=== PATIENT | male | born 1940 | race Caucasian/White ===

== ENCOUNTER 2018-02-11 09:37 | Observation (INO) ==
--- NOTE | 2018-02-11 10:30 | ED ---
HPI General Chief Complaint: Chest Pain Stated Complaint: chest pain Time Seen by Provider: 02/11/18 09:48 Source: patient Mode of arrival: ambulatory Limitations: no limitations History of Present Illness HPI narrative: The patient is a 77-year-old male who presents to the emergency department via private vehicle for chest pain. The patient developed left-sided chest pain several days ago while driving from [place] to [place] to visit relatives and friends. The chest pain was left-sided, nonradiating, sharp, and lasted only seconds. He did have one episode of shortness of breath with the chest pain, however, does not have shortness of breath with every episode of chest pain. He denies any nausea, vomiting, or diaphoresis. The patient does have a history of peripheral vascular disease, hypertension, hyperlipidemia, and tobacco use but quit smoking in 1986. He denies any history of coronary artery disease. The patient states he had a chemical stress test 3 months ago in [place] which was negative per his report. Symptoms are moderate, intermittent, and not exacerbated with exertion. MD complaint: chest pain Complete Quality Measures for STEMI Alert Patients STEMI Alert: No Onset (ago): day(s) Duration: intermittent Onset: during rest Pain location: left chest Severity: moderate Severity scale (1-10): 5 Quality: sharp Pain radiation: none Relieving factors: nothing Exacerbating factors: nothing Associated symptoms: dyspnea Treatments prior to arrival chest pain: none Related Data Home Medications Medication Instructions Recorded Confirmed Lopid 600 mg DAILY 02/11/18 02/11/18 Plavix 75 mg DAILY 02/11/18 02/11/18 aspirin [Aspirin Low Dose] 81 mg PO DAILY 02/11/18 02/11/18 atorvastatin [Lipitor] 20 mg PO DAILY 02/11/18 02/11/18 Allergies Allergy/AdvReac Type Severity Reaction Status Date / Time No Known Allergies Allergy Unverified 02/11/18 09:44 Review of Systems ROS: all other systems reviewed are negative [facility] Medical History Medical History Coronary arteriosclerosis after coronary artery bypass grafting (Acute) High cholesterol (Acute) Social History Social History Substance History: No History of Abuse Smoking Status: Former smoker Tobacco Type: Cigarettes How Often Do You Have a Drink Containing Alcohol: Monthly or less Recent Travel in [facility] within the Last 8 Weeks: No Recent Out of Country Travel within the Last 8 Weeks: No Exam Narrative Exam Narrative: GENERAL: Awake, alert, pleasant 77-year-old male who appears his stated age and is in no acute respiratory distress. SKIN: Focused skin assessment warm/dry. HEAD: Atraumatic. Normocephalic. EYES: Pupils equal and round. No scleral icterus. No injection or drainage. ENT: No nasal bleeding or discharge. Mucous membranes pink and moist. NECK: Trachea midline. No JVD. CARDIOVASCULAR: Regular rate and rhythm. No murmur appreciated. Palpation the left chest wall does not reproduce symptoms. RESPIRATORY: No accessory muscle use. Clear to auscultation. Breath sounds equal bilaterally. GASTROINTESTINAL: Abdomen soft, non-tender, nondistended. MUSCULOSKELETAL: No obvious deformities. No clubbing. No cyanosis. No edema. Well-healed scar in the medial aspect of the left lower extremity. NEUROLOGICAL: Awake and alert. No obvious cranial nerve deficits. Motor grossly within normal limits. Normal speech. Nonfocal. Oriented 4. PSYCHIATRIC: Appropriate mood and affect; insight and judgment normal. Course Initial Documented Vital Signs Temperature 97.8 F 02/11/18 09:39 Pulse Rate 78 02/11/18 09:39 Respiratory Rate 20 02/11/18 09:39 Blood Pressure 178/109 H 02/11/18 09:39 Pulse Oximetry 97 02/11/18 09:39 Last Documented Vital Signs Temperature 97.8 F 02/11/18 09:39 Pulse Rate 61 02/11/18 14:08 Respiratory Rate 18 02/11/18 14:08 Blood Pressure 163/82 H 02/11/18 14:08 Pulse Oximetry 97 02/11/18 11:17 Clinical Decision Support PERC Rule Age greater than or equal to 50: Yes HR greather than or equal to 100: No Sa02 on room air is less than 95%: No Unilateral Leg Swelling: No Hemoptysis: No Recent Surgery or Trauma: No Prior PE or DVT: No Hormone Use: No Medical Decision Making MDM Narrative Medical decision making narrative: IV was established, labs are drawn and sent, and the patient was placed on cardiac telemetry monitoring and continuous pulse oximetry monitoring. EKG was ordered and interpreted. Chest x-ray was obtained. The patient was administered aspirin 162 mg orally. The patient could not be ruled out with PERC secondary to age, also has recent driving history, therefore, d-dimer was sent to lab. The patient's initial troponin was less than 0.02. D-dimer was positive, therefore, CT pulmonary angiogram was ordered. The patient CTA reveals no PE, however, does reveal a focal anterior pericardial effusion. Therefore, the patient will be a 23 hour observation for serial cardiac enzymes and echocardiogram. The on-call medical service was paged for 23 hour observation. Medical Screen Exam Complete: Yes Emergency Medical Condition: Yes Differential Diagnosis Differential Diagnosis: Differential diagnosis includes ACS, pulmonary embolism , esophageal spasm, GERD, pleurisy, pneumonia, pleural effusion, pneumothorax. Lab Data Lab results reviewed: Yes I reviewed the patient's lab results. Lab results narrative: D-dimer was positive. Creatinine was 1.76. Troponin was less than 0.02. Result diagrams: 02/11/18 10:32 02/11/18 10:32 Lab Results 02/11/18 02/11/18 02/11/18 Range/Units 10:32 10:32 10:32 WBC 6.8 (4.0-11.0) th/mm3 RBC 4.07 L (4.50-5.90) mil/mm3 Hgb 12.4 L (13.0-17.0) gm/dL Hct 37.4 L (39.0-51.0) % MCV 91.8 (80.0-100.0) fL MCH 30.4 (27.0-34.0) pg MCHC 33.1 (32.0-36.0) % RDW 15.6 (11.6-17.2) % Plt Count 175 (150-450) th/mm3 MPV 8.5 (7.0-11.0) fL Neut % (Auto) 67.6 (16.0-70.0) % Lymph % (Auto) 18.3 (9.0-44.0) % Delta % (Auto) 8.3 H (0.0-8.0) % Eos % (Auto) 5.1 H (0.0-4.0) % Baso % (Auto) 0.7 (0.0-2.0) % Neut # (Auto) 4.6 (1.8-7.7) th/mm3 Lymph # (Auto) 1.2 (1.0-4.8) th/mm3 Delta # (Auto) 0.6 (0.0-0.9) th/mm3 Eos # (Auto) 0.3 (0.0-0.4) th/mm3 Baso # (Auto) 0.0 (0.0-0.2) th/mm3 WBC Differential . Differential Comment Auto diff final PT 10.3 (9.8-11.6) sec INR 1.0 Ratio APTT 21.6 L (24.3-30.1) sec D-Dimer Quant (PE/DVT) 2.32 H (0.00-0.50) mg/L FEU Sodium 142 (136-145) meq/L Potassium 5.0 (3.5-5.1) meq/L Chloride 109 H (98-107) meq/L Carbon Dioxide 26.8 (21.0-32.0) meq/L Anion Gap 6 (5-15) meq/L BUN 15 (7-18) mg/dL Creatinine 1.76 H (0.60-1.30) mg/dL Estimated GFR 38 L (>89) mL/min Random Glucose 98 (74-106) mg/dL Calcium 8.7 (8.5-10.1) mg/dL Magnesium 1.8 (1.5-2.5) mg/dL Total Bilirubin 0.6 (0.2-1.0) mg/dL AST 26 (15-37) U/L ALT 19 (12-78) U/L Alkaline Phosphatase 104 (45-117) U/L Troponin I Less than 0.02 L (0.02-0.05) ng/mL Total Protein 8.0 (6.4-8.2) g/dL Albumin 3.5 (3.4-5.0) g/dL Lipase 211 (73-393) U/L Imaging Data Attestation: I personally reviewed and interpreted this imaging study as follows : My impression: Chest x-ray is unremarkable Radiologist's impression: Chest X-Ray 02/11/18 10:20 CONCLUSION: No acute cardiopulmonary disease identified. Chest CTA 02/11/18 11:42 CONCLUSION: 1. No CT evidence for pulmonary artery embolism as questioned. 2. 7 mm subpleural nodule in the inferior right upper lobe. Recommend CT examination at 6-12 months per 2017 Fleischner criteria. 3. Moderate coronary artery calcifications. 4. Subtle focal anterior pericardial effusion. ECG Data EKG Prior to Arrival: No Attestation: I personally reviewed and interpreted this ECG as follows: Interpretation: EKG reveals atrial with, inverted P-wave in lead II. Q-wave noted in lead III. Discharge Plan Discharge Disposition Patient Disposition: 30 Still Patient Discharge Condition Condition: Stable Discharge Details Diagnosis: Atypical chest pain, Pericardial effusion Physicians Team ED Provider: Maco Hampton Primary Care Provider: NON STAFF,PROVIDER Rxs /Orders / Referrals /Forms Prescriptions: No Action Plavix 75 mg DAILY RF: 0 atorvastatin [Lipitor] 20 mg Tablet 20 mg PO DAILY RF: 0 aspirin [Aspirin Low Dose] 81 mg Tablet,Delayed Release (Dr/Ec) 81 mg PO DAILY RF: 0 Lopid 600 mg DAILY RF: 0 Discharge Instructions Patient Printed Instructions: Chest Pain (ED) Status ED Status: Pending Admission
[2018-02-11 10:53] LABS: Baso % (Auto) 0.7 % (0.0-2.0); Eos # (Auto) 0.3 th/mm3 (0.0-0.4); Eos % (Auto) 5.1 % (0.0-4.0); Hematocrit 37.4 % (39.0-51.0); Hemoglobin 12.4 gm/dL (13.0-17.0); Lymph # (Auto) 1.2 th/mm3 (1.0-4.8); Lymph % (Auto) 18.3 % (9.0-44.0); Mean Corpuscular HGB Conc 33.1 % (32.0-36.0); Mean Corpuscular Hemoglobin 30.4 pg (27.0-34.0); Mean Corpuscular Volume 91.8 fL (80.0-100.0); Mean Platelet Volume 8.5 fL (7.0-11.0); Mono # (Auto) 0.6 th/mm3 (0.0-0.9); Mono % (Auto) 8.3 % (0.0-8.0); Neut # (Auto) 4.6 th/mm3 (1.8-7.7); Neut % (Auto) 67.6 % (16.0-70.0); Platelet Count 175 th/mm3 (150-450); Red Blood Count 4.07 mil/mm3 (4.50-5.90); Red Cell Distribution Width 15.6 % (11.6-17.2); White Blood Count 6.8 th/mm3 (4.0-11.0)
--- NOTE | 2018-02-11 10:54 | XR ---
EXAM DATE: 02/11/2018 10:42 AM EDT AGE/SEX: 77 years / Male INDICATIONS: Upper, left sided chest pain and shortness of breath. CLINICAL DATA: This is the patient's initial encounter. Patient reports that signs and symptoms have been present for 2 days and indicates a pain score of 4/10. MEDICAL/SURGICAL HISTORY: None. None. COMPARISON: No prior exams available for comparison. FINDINGS: Single AP view of the chest. The lungs are clear. Cardiomediastinal silhouette within nor mal limits. No evidence of pleural effusion or pneumothorax. CONCLUSION: No acute cardiopulmonary disease identified. Electronically signed by: Stuart Block MD 02/11/2018 10:52 AM EDT
[2018-02-11 11:05] LABS: Activated Partial Thrombo Time 21.6 sec (24.3-30.1); D-Dimer 2.32 mg/L FEU (0.00-0.50); Prothrombin Time 10.3 sec (9.8-11.6)
[2018-02-11 11:15] LABS: Alanine Aminotransferase 19 U/L (12-78); Albumin 3.5 g/dL (3.4-5.0); Anion Gap 6 meq/L (5-15); Aspartate Aminotransferase 26 U/L (15-37); Blood Urea Nitrogen 15 mg/dL (7-18); Calcium 8.7 mg/dL (8.5-10.1); Carbon Dioxide 26.8 meq/L (21.0-32.0); Chloride 109 meq/L (98-107); Glomerular Filtration Rate 38 mL/min (>89); Glucose,Random 98 mg/dL (74-106); Lipase 211 U/L (73-393); Magnesium 1.8 mg/dL (1.5-2.5); Sodium 142 meq/L (136-145)
[2018-02-11 11:16] LABS: Alkaline Phosphatase 104 U/L (45-117)
--- NOTE | 2018-02-11 12:58 | CT ---
EXAM DATE: 02/11/2018 12:52 PM EDT AGE/SEX: 77 years / Male INDICATIONS: Left sided chest pain for three days. CLINICAL DATA: This is the patient's initial encounter. Patient reports that signs and symptoms have been present for 3 days and indicates a pain score of 6/10. MEDICAL/SURGICAL HISTORY: Cardiovascular disease. . unspecified arterial surgery RADIATION DOSE: 10.49 CTDI (mGy) COMPARISON: C, CHEST 1V SINGLE AP, 02/11/2018. . TECHNIQUE: Volumetric scanning was performed using a multi-row detector CT scanner during bolus infu madelaine of 50 ml Visipaque 320 (iodixanol) nonionic water-soluble contrast as a single exam dose. The d destiny was post processed with a variety of visualization algorithms including full volume maximum inten sity projection and sliding thin slab reformation. Using automated exposure control and adjustment o f the mA and/or kV according to patient size, radiation dose was kept as low as reasonably achievable to obtain optimal diagnostic quality images. DICOM format image data is available electronically fo r review and comparison. FINDINGS: Pulmonary Arteries: No filling defects are seen in the pulmonary arteries through the segmental vess els. The main pulmonary artery is normal in diameter. Lung: Right apical scarring. 7 mm nodule in the inferior right upper lobe abutting the minor fissure . Senescent changes at the lung bases. Pleura: No effusion, significant pleural thickening or pneumothorax. Mediastinum: Heart is unremarkable without pericardial effusion. Moderate coronary artery calcificat ions. Subtle focal anterior pericardial effusion. No evidence of mediastinal or hilar adenopathy. Osseous Structures: No abnormal focal lytic or blastic bony lesions. Other: Visulaized upper abdomen is unremarkable. CONCLUSION: 1. No CT evidence for pulmonary artery embolism as questioned. 2. 7 mm subpleural nodule in the inferior right upper lobe. Recommend CT examination at 6-12 months per 2017 Fleischner criteria. 3. Moderate coronary artery calcifications. 4. Subtle focal anterior pericardial effusion. Electronically signed by: Steve Winston MD 02/11/2018 12:56 PM EDT
--- NOTE | 2018-02-11 14:45 | P.HPIM ---
History of Present Illness Primary Care Physician: PROVIDER NON STAFF History of Present Illness: Mr. Hidalgo is a 77-year-old male. He is here for vacation and drove here from [place]. She reports is starting 4 days ago he has been having some intermittent chest pain. The chest pains nature slightly worsened today and he also arrived to his destination [place] so he came into the emergency department. He has a recent cardiac evaluation in [place] and had a negative exercise stress test and negative chemical stress test 3 months ago. CTA of the chest showed no evidence of pulmonary embolism. He did have some evidence of an anterior pericardial effusion which would be an atypical finding. That may represent a viral pericarditis versus congenital anomaly. Patient knows of no congenital anomalies at . He has no chest pain when seen but also describes this as a sharp pain in the left side of his chest which is only intermittent and will last a few seconds. No other complaints today. Patient' s baseline medical history includes peripheral vascular disease and carotid artery stenosis both of which are being monitored and managed as an outpatient in his home town in [place]. - Diagnosis (1) Atypical chest pain (2) Pericardial effusion Review of Systems No: unobtainable due to mental condition, unobtainable due to mental status Constitutional: Denies fatigue, Denies fever(s), Denies malaise, Denies night sweats, Denies weakness Eyes: Denies blind spots, Denies blurry vision, Denies change in vision, Denies double vision Ears, Nose, Mouth, and Throat: Denies abnormal hearing, Denies bleeding gums, Denies bad breath Cardiovascular: Reports chest pain, Reports chest pain at rest, Reports chest pain with activity, Denies shortness of breath with activity Respiratory: Denies cough, Denies shortness of breath, Denies wheezing Gastrointestinal: Denies abdominal pain, Denies black, tarry stools, Denies bloating, Denies bright, red blood in stools Musculoskeletal: Denies abnormal walking, Denies back pain, Denies body aches Skin/Breast: Denies rash, Denies skin pain, Denies skin ulcer Neurologic: Denies abnormal hearing, Denies abnormal movements, Denies abnormal speech Psychiatric: Denies abnormal sleep pattern, Denies anxiety, Denies behavioral changes [facility] - History History Provided By: Patient - Medical History Medical History: Medical History (Last Updated 08/18/18 @ 16:36 by Phong Worthington MD) Coronary arteriosclerosis after coronary artery bypass grafting High cholesterol Stenosis of peripheral vascular stent - Family History Family History: Family History (Last Updated 02/11/18 @ 16:36 by Phong Worthington MD) Mother Brain aneurysm Other Diabetes - Tobacco History Smoking Status: Former smoker Tobacco Type: Cigarettes - Alcohol History How Often Do You Have a Drink Containing Alcohol: Monthly or less - Substance Use History Substance History: No History of Abuse - Travel History Recent Travel in the [place] Within the Last 8 Weeks: No Recent Travel Out of the Country Within the Last 8 Weeks: No - Immunization History Tetanus Immunization: Unsure Hx Influenza Vaccine This Season: Yes Medications and Allergies Active Medications: Active Medications Al Hydroxide/Mg Hydroxide (Milk Of Mahendra Aguilar) 30 ml PO Q12H PRN PRN Reason: Mild Constipation Heparin Sodium (Porcine) (Heparin Inj) 5,000 units SQ Q12H OPAL Ondansetron HCl (Zofran Inj) 4 mg IV.PUSH Q6H PRN PRN Reason: NAUSEA OR VOMITING Sodium Chloride (Ns Flush) 2 ml IV.FLUSH UNSCH PRN PRN Reason: FLUSH AFTER USING IV ACCESS Allergies Allergy/AdvReac Type Severity Reaction Status Date / Time No Known Allergies Allergy Unverified 02/11/18 09:44 Home Medications Medication Instructions Recorded Confirmed Type Lopid 600 mg DAILY 02/11/18 02/11/18 History Plavix 75 mg DAILY 02/11/18 02/11/18 History aspirin [Aspirin Low Dose] 81 mg PO DAILY 02/11/18 02/11/18 History atorvastatin [Lipitor] 20 mg PO DAILY 02/11/18 02/11/18 History Exam Vital signs: Vital Signs 02/11/18 09:39 02/11/18 09:44 02/11/18 10:20 Temperature 97.8 F Pulse Rate 78 73 82 Respiratory Rate 20 22 18 Blood Pressure 178/109 H 173/74 H 173/74 H Pulse Oximetry 97 97 95 02/11/18 11:17 02/11/18 11:59 02/11/18 14:04 Temperature Pulse Rate 68 61 Respiratory Rate Blood Pressure 148/77 H 163/82 H Pulse Oximetry 97 02/11/18 14:08 Temperature Pulse Rate 61 Respiratory Rate 18 Blood Pressure 163/82 H Pulse Oximetry Intake & Output 02/10/18 02/11/1802/11/18 18:59 06:59 18:59 Weight 90.718 kg Narrative: GENERAL: NAD, A&Ox3 HEAD: Normocephalic. NECK: Supple, trachea midline. No lymphadenopathy. EYES: No scleral icterus. No injection or drainage. CARDIOVASCULAR: Regular rate and rhythm without murmurs, gallops, or rubs. RESPIRATORY: Breath sounds equal bilaterally. No accessory muscle use. GASTROINTESTINAL: Abdomen soft, non-tender, nondistended. MUSCULOSKELETAL: No cyanosis, or edema. SKIN: Warm and dry. NEURO: No focal neurological deficits. Results - Labs CBC & Chem 7: 02/11/18 10:32 02/11/18 10:32 Labs: Short CBC 02/11/18 Range/Units 10:32 WBC 6.8 (4.0-11.0) th/mm3 Hgb 12.4 L (13.0-17.0) gm/dL Hct 37.4 L (39.0-51.0) % Plt Count 175 (150-450) th/mm3 BMP 02/11/18 10:32 Sodium 142 Potassium 5.0 Chloride 109 H Carbon Dioxide 26.8 BUN 15 Creatinine 1.76 H Calcium 8.7 Cardiac Enzymes 02/11/18 Range/Units 10:32 Troponin I Less than 0.02 L (0.02-0.05) ng/mL Liver Function 02/11/18 Range/Units 10:32 Total Bilirubin 0.6 (0.2-1.0) mg/dL AST 26 (15-37) U/L ALT 19 (12-78) U/L Alkaline Phosphatase 104 (45-117) U/L Albumin 3.5 (3.4-5.0) g/dL - Imaging Impressions Chest X-Ray 02/11/18 10:20 CONCLUSION: No acute cardiopulmonary disease identified. Chest CTA 02/11/18 11:42 CONCLUSION: 1. No CT evidence for pulmonary artery embolism as questioned. 2. 7 mm subpleural nodule in the inferior right upper lobe. Recommend CT examination at 6-12 months per 2017 Fleischner criteria. 3. Moderate coronary artery calcifications. 4. Subtle focal anterior pericardial effusion. Caprini VTE Risk Assessment Caprini VTE Risk Assessment: No/Low Risk (score <= 1) Caprini Risk Assessment Model: Point Value = 1 Point Value = 2 Point Value = 3 Point Value = 5 Age 41-60 Minor surgery BMI > 25 kg/m2 Swollen legs Varicose veins or History of unexplained or recurrent spontaneous Oral contraceptives or hormone replacement Sepsis (< 1 month) Serious lung disease, including pneumonia (< 1 month) Abnormal pulmonary function Acute myocardial infarction Congestive heart failure (< 1 month) History of inflammatory bowel disease Medical patient at bed rest Age 61-74 Arthroscopic surgery Major open surgery (> 45 min) Laparoscopic surgery (> 45 min) Malignancy Confined to bed (> 72 hours) Immobilizing plaster cast Central venous access Age >= 75 History of VTE Family history of VTE Factor V Leiden Prothrombin [id number] Lupus anticoagulant Anticardiolipin antibodies Elevated serum homocysteine Heparin-induced thrombocytopenia Other congenital or acquired thrombophilia Stroke (< 1 month) Elective arthroplasty Hip, pelvis, or leg fracture Acute spinal cord injury (< 1 month) Prophylaxis Regimen: Total Risk Factor Score Risk Level Prophylaxis Regimen 0-1 Low Early ambulation 2 Moderate Order ONE of the following: *Sequential Compression Device (SCD) *Heparin 5000 units SQ BID 3-4 Higher Order ONE of the following medications: *Heparin 5000 units SQ TID *Enoxaparin/Lovenox 40 mg SQ daily (WT < 150 kg, CrCl > 30 mL/min) *Enoxaparin/Lovenox 30 mg SQ daily (WT < 150 kg, CrCl > 10-29 mL/min) *Enoxaparin/Lovenox 30 mg SQ BID (WT < 150 kg, CrCl > 30 mL/min) AND/OR *Sequential Compression Device (SCD) 5 or more Highest Order ONE of the following medications: *Heparin 5000 units SQ TID (Preferred with Epidurals) *Enoxaparin/Lovenox 40 mg SQ daily (WT < 150 kg, CrCl > 30 mL/min) *Enoxaparin/Lovenox 30 mg SQ daily (WT < 150 kg, CrCl > 10-29 mL/min) *Enoxaparin/Lovenox 30 mg SQ BID (WT < 150 kg, CrCl > 30 mL/min) AND *Sequential Compression Device (SCD) Assessment and Plan - Assessment (1) Atypical chest pain Code(s): R07.89 - Other chest pain Status: Acute (2) Pericardial effusion Code(s): I31.3 - Pericardial effusion (noninflammatory) Status: Acute - Plan 77 year old male admitted with atypical chest pain and anterior pericardial effusion Chest pain Anterior pericardial effusion Evaluate for ACS Follow cardiac enzymes Aspirin daily When necessary oxygen When necessary morphine for pain. When necessary nitroglycerin Follow on telemetry Echocardiogram PVD Carotid Artery Stenosis Continue to follow as an outpatient DVT Prophylaxis SCDs
[2018-02-11] MEDS ORDERED: Morphine Inj 4 MG/ML Vial IV.PUSH PRN ×2 (16:43)
[2018-02-11] MEDS: Heparin - SQ 10,000 UNITS/ML Vial SQ SCH (18:13)
--- NOTE | 2018-02-11 19:51 | ECG ---
Date Performed: 02/11/2018 Time Performed: 09:59:39 PTAGE: 77 years EKG: ECTOPIC ATRIAL RHYTHM WITH SOME PREMATURE ATRIAL BEATS PRESENT. ABNORMAL RHYTHM ECG NO PREVIOUS TRACING DOCTOR: Gabe White Interpretating Date/Time 02/11/2018 19:50:47
[2018-02-11 19:54] LABS: Creatine Kinase 81 U/L (39-308)
[2018-02-12 02:31] LABS: Alanine Aminotransferase 17 U/L (12-78); Albumin 3.1 g/dL (3.4-5.0); Anion Gap 8 meq/L (5-15); Aspartate Aminotransferase 16 U/L (15-37); Blood Urea Nitrogen 15 mg/dL (7-18); Calcium 8.3 mg/dL (8.5-10.1); Carbon Dioxide 27.2 meq/L (21.0-32.0); Chloride 106 meq/L (98-107); Glomerular Filtration Rate 42 mL/min (>89); Glucose,Random 104 mg/dL (74-106); Potassium 4.1 meq/L (3.5-5.1); Sodium 141 meq/L (136-145)
[2018-02-12 02:35] LABS: Alkaline Phosphatase 99 U/L (45-117); Total Protein 7.1 g/dL (6.4-8.2)
[2018-02-12 02:39] LABS: Creatine Kinase 77 U/L (39-308)
[2018-02-12] MEDS: Heparin - SQ 10,000 UNITS/ML Vial SQ SCH (04:26)
[2018-02-12 06:30] VITALS: RESP 18; TEMP 97.6
[2018-02-12 08:38] LABS: Baso % (Auto) 0.6 % (0.0-2.0); Eos # (Auto) 0.3 th/mm3 (0.0-0.4); Hematocrit 37.1 % (39.0-51.0); Hemoglobin 12.5 gm/dL (13.0-17.0); Lymph # (Auto) 1.3 th/mm3 (1.0-4.8); Lymph % (Auto) 20.3 % (9.0-44.0); Mean Corpuscular HGB Conc 33.7 % (32.0-36.0); Mean Corpuscular Hemoglobin 31.1 pg (27.0-34.0); Mean Corpuscular Volume 92.2 fL (80.0-100.0); Mean Platelet Volume 8.6 fL (7.0-11.0); Mono # (Auto) 0.5 th/mm3 (0.0-0.9); Mono % (Auto) 7.7 % (0.0-8.0); Neut # (Auto) 4.2 th/mm3 (1.8-7.7); Neut % (Auto) 66.4 % (16.0-70.0); Platelet Count 167 th/mm3 (150-450); Red Blood Count 4.02 mil/mm3 (4.50-5.90); Red Cell Distribution Width 15.4 % (11.6-17.2); White Blood Count 6.3 th/mm3 (4.0-11.0)
[2018-02-12] MEDS ORDERED: Naproxen 500 MG Tablet PO SCH (09:00)
[2018-02-12 12:14] VITALS: BP 148/69; PULSE 64; O2SAT 98
--- NOTE | 2018-02-12 12:47 | ECHRPT ---
Indication: congenital anomaly CONCLUSIONS The left ventricular systolic function is normal with an estimated ejection fraction in the range of 60-65%. Normal left ventricular size. Wall thickness is normal. No regional wall motion abnormalities are present. Aortic valve sclerosis is present. The pulmonary valve is not well visualized. The inferior vena cava was not well visualized. BP: / HR: Rhythm: Sinus MEASUREMENTS (Male / Female) Normal Values Technical Quality:Poor 2D ECHO LV Diastolic Diameter PLAX 4.6 cm 4.2 - 5.9 / 3.9 - 5.3 cm LV Systolic Diameter PLAX 3.1 cm IVS Diastolic Thickness 1.1 cm 0.6 - 1.0 / 0.6 - 0.9 cm LVPW Diastolic Thickness 1.1 cm 0.6 - 1.0 / 0.6 - 0.9 cm LV Relative Wall Thickness 0.5 RV Internal Dim ED PLAX 2.8 cm LVOT Diameter 2.0 cm LV Ejection Fraction MOD 4C 63.8 % LV Ejection Fraction 4C AL 66.1 % M-MODE Aortic Root Diameter MM 2.3 cm LA Systolic Diameter MM 4.6 cm LA Ao Ratio MM 2.0 AV Cusp Separation MM 1.6 cm DOPPLER AV Peak Velocity 140.0 cm/s AV Peak Gradient 7.8 mmHg LVOT Peak Velocity 70.8 cm/s LVOT Peak Gradient 2.0 mmHg AV Area Cont Eq pk 1.6 cm MV Area PHT 2.5 cm Mitral E Point Velocity 81.4 cm/s Mitral A Point Velocity 101.0 cm/s Mitral E to A Ratio 0.8 LV E' Lateral Velocity 4.5 cm/s Mitral E to LV E' Lateral Ratio 18.2 LV E' Septal Velocity 4.3 cm/s Mitral E to LV E' Septal Ratio 19.0 PV Peak Velocity 118.0 cm/s PV Peak Gradient 5.6 mmHg FINDINGS LEFT VENTRICLE The left ventricular systolic function is normal with an estimated ejection fraction in the range of 60-65%. Normal left ventricular size. Wall thickness is normal. No regional wall motion abnormalities are present. RIGHT VENTRICLE Normal right ventricular size and systolic function. LEFT ATRIUM The left atrial size is normal. RIGHT ATRIUM The right atrial size is normal. ATRIAL SEPTUM Normal atrial septal thickness without atrial level shunting by limited color doppler interrogation. AORTA The aortic root and proximal ascending aorta are normal in size on limited imaging. MITRAL VALVE Structurally normal mitral valve. No mitral valve stenosis or regurgitation. AORTIC VALVE Trileaflet aortic valve. Aortic valve sclerosis is present. TRICUSPID VALVE Structurally normal tricuspid valve. No tricuspid valve stenosis or regurgitation. PULMONARY VALVE The pulmonary valve is not well visualized. VESSELS The inferior vena cava was not well visualized. PERICARDIUM No pericardial effusion. Neymar Moncada MD, FACC (Electronically Signed) Final Date:12 February 2018 12:47
--- NOTE | 2018-02-12 14:01 | P.DS ---
Date of admission: 02/11/18 14:47 Primary care physician: PROVIDER NON STAFF Brief History from admission: Mr. Hidalgo is a 77-year-old male. He is here for vacation and drove here from [place]. She reports is starting 4 days ago he has been having some intermittent chest pain. The chest pains nature slightly worsened today and he also arrived to his destination [place] so he came into the emergency department. He has a recent cardiac evaluation in [place] and had a negative exercise stress test and negative chemical stress test 3 months ago. CTA of the chest showed no evidence of pulmonary embolism. He did have some evidence of an anterior pericardial effusion which would be an atypical finding. That may represent a viral pericarditis versus congenital anomaly. Patient knows of no congenital anomalies at . He has no chest pain when seen but also describes this as a sharp pain in the left side of his chest which is only intermittent and will last a few seconds. No other complaints today. Patient' s baseline medical history includes peripheral vascular disease and carotid artery stenosis both of which are being monitored and managed as an outpatient in his home town in [place]. DS: Diagnosis - Discharge Diagnosis (1) Atypical chest pain Status: Acute (2) Pericardial effusion Status: Acute DS: Summary Hospital Course: Mr. Hidalgo is a 77-year-old male. He has a past history of peripheral vascular disease and carotid artery stenosis. He came into the hospital secondary to chest pain. CT angios was performed and showed no evidence of PE but did show evidence for possible anterior pericardial effusion. Echocardiogram is obtained and shows no evidence of any pericardial effusion. Cardiac enzymes were monitored for 12 hours and showed no positivity. The patient's chest pain has resolved. Possible pericarditis as an etiology of patient's symptoms are now resolved. He has 2 stress tests performed 3 months ago which were within normal limits. At this point patient is medically stable and cleared for discharge home. - Time Spent with Patient Total time spent providing and/or coordinating discharge services: Less than 30 minutes - Quality: VTE Deep Vein Thrombosis/Pulmonary Embolism Present on Admission: No Exam Vital signs: Vital Signs 02/11/18 14:04 02/11/18 14:08 02/11/18 16:00 Temperature 97.6 F Pulse Rate 61 61 57 L Respiratory Rate 18 20 Blood Pressure 163/82 H 163/82 H 165/81 H Pulse Oximetry 98 02/11/18 17:47 02/11/18 20:00 02/12/18 00:00 Temperature 97.7 F 98.1 F Pulse Rate 65 65 Respiratory Rate 21 20 Blood Pressure 150/72 H 168/72 H 133/63 Pulse Oximetry 98 95 02/12/18 04:00 02/12/18 07:54 02/12/18 12:00 Temperature 97.6 F 97.6 F 97.6 F Pulse Rate 69 66 64 Respiratory Rate 18 18 18 Blood Pressure 151/69 H 161/77 H 148/69 H Pulse Oximetry 94 L 97 98 Intake & Output 02/11/18 02/12/18 02/12/18 18:59 06:59 18:59 Weight 90.718 kg Other: Weight On Admission 90.718 kg Results Procedures completed during hospitalization: None Labs on day of discharge: Labs from last 24 hours 02/12/18 02/12/18 02/11/18 07:15 01:18 19:10 WBC 6.3 RBC 4.02 L Hgb 12.5 L Hct 37.1 L MCV 92.2 MCH 31.1 MCHC 33.7 RDW 15.4 Plt Count 167 MPV 8.6 Neut % (Auto) 66.4 Lymph % (Auto) 20.3 Izard % (Auto) 7.7 Eos % (Auto) 5.0 H Baso % (Auto) 0.6 Neut # (Auto) 4.2 Lymph # (Auto) 1.3 Izard # (Auto) 0.5 Eos # (Auto) 0.3 Baso # (Auto) 0.0 WBC Differential . Differential Comment Auto diff final Sodium 141 Potassium 4.1 D Chloride 106 Carbon Dioxide 27.2 Anion Gap 8 BUN 15 Creatinine 1.61 H Estimated GFR 42 L Random Glucose 104 Calcium 8.3 L Total Bilirubin 0.5 AST 16 ALT 17 Alkaline Phosphatase 99 Total Creatine Kinase 77 81 Troponin I Less than 0.02 L Less than 0.02 L Total Protein 7.1 D Albumin 3.1 L - Impressions ITS Impressions Chest X-Ray 02/11/18 10:20 CONCLUSION: No acute cardiopulmonary disease identified. Chest CTA 02/11/18 11:42 CONCLUSION: 1. No CT evidence for pulmonary artery embolism as questioned. 2. 7 mm subpleural nodule in the inferior right upper lobe. Recommend CT examination at 6-12 months per 2017 Fleischner criteria. 3. Moderate coronary artery calcifications. 4. Subtle focal anterior pericardial effusion. Discharge Plan - Discharge Disposition Patient Disposition: 01 Discharge Home - Discharge Condition Condition: Stable - Discharge Order Discharge Orders: Discharge Order (Routine); Ordered 02/12/18 Ordered By: Phong Worthington - Discharge Details Anticipated Discharge Date: 02/12/18 - Physicians Team Primary Care Provider: NON STAFF,PROVIDER Attending Provider: Phong Worthington
== END 2018-02-12 13:49 | disposition home or self-care (01) ==
LOC: NEPE 09:37 → NEDA 09:37 → NEPFCDU 09:37 → NEDA 15:43 → NEPFCDU 17:10
PROVIDERS: ADMIT Hospitalist; ATTEND Hospitalist